=== PATIENT | male | born 1975 | race Caucasian/White ===

== ENCOUNTER 2018-06-14 12:29 | Inpatient (IN) | payer OTHER ==
[2018-06-14 15:55] VITALS: BMI 27.5
--- NOTE | 2018-06-14 17:36 | HP ---
COWS - Scale Resting Pulse: 1= [place] 81-100 Sweatin=Flushed/Facial Moisture Restless Observation: 3= Extraneous Movement Pupil Size: 1= Pupils >than Normal Bone or Joint Aches: 2= Severe Diffuse Aches Runny Nose/ Eye Tearin= Runny Nose/Eyes GI Upset > 30mins: 2= Nausea/Diarrhea Tremor Observation: 2= Slight Tremor Visible Yawning Observation: 1= 1-2x During Session Anxiety or Irritability: 2=Irritable/Anxious Goose Flesh Skin: 3=Piloerection COWS Score: 21 Admission ROS BHS - HPI Chief Complaint: Im here for detox Allergies/Adverse Reactions: Allergies Allergy/AdvReac Type Severity Reaction Status Date / Time No Known Allergies Allergy Verified 06/14/18 17:31 Exam Limitations: No Limitations - Ebola screening Have you traveled outside of the country in the last 21 days: No (N) Have you had contact with anyone from an Ebola affected area: No Have you been sick,other than usual withdrawal symptoms: No Do you have a fever: No - Review of Systems Constitutional: Chills, Loss of Appetite, Changes in sleep EENT: reports: Blurred Vision, Nose Congestion Respiratory: reports: Cough Cardiac: reports: Lightheadedness GI: reports: Poor Fluid Intake, Abdominal cramping : reports: Other (hesitancy) Musculoskeletal: reports: Back Pain, Joint Pain, Muscle Pain Integumentary: reports: No Symptoms Reported Neuro: reports: Headache, Tremors Endocrine: reports: No Symptoms Reported Hematology: reports: No Symptoms Reported Psychiatric: reports: Depressed Patient History - Patient Medical History Hx Anemia: No Hx Asthma: No Hx Chronic Obstructive Pulmonary Disease (COPD): No Hx Cancer: No Hx Cardiac Disorders: No Hx Congestive Heart Failure: No Hx Hypertension: No Hx Hypercholesterolemia: No Hx Pacemaker: No HX Cerebrovascular Accident: No Hx Seizures: No Hx Dementia: No Hx Diabetes: No Hx Gastrointestinal Disorders: No Hx Liver Disease: No Hx Genitourinary Disorders: No Hx Sexually Transmitted Disorders: No Hx Renal Disease (ESRD): No Hx Thyroid Disease: No Hx Human Immunodeficiency Virus (HIV): No Hx Hepatitis C: No Hx Depression: Yes Hx Suicide Attempt: No Hx Bipolar Disorder: No Hx Schizophrenia: No - Patient Surgical History Past Surgical History: Yes Hx Neurologic Surgery: No Hx Cataract Extraction: No Hx Cardiac Surgery: No Hx Lung Surgery: No Hx Breast Surgery: No Hx Breast Biopsy: No Hx Abdominal Surgery: Yes (appendectomy) Hx Appendectomy: No Hx Cholecystectomy: No Hx Genitourinary Surgery: No Hx Section: No Hx Orthopedic Surgery: No Hx Hysterectomy: No Anesthesia Reaction: No - PPD History Previous Implant?: Yes Documented Results: Negative w/o proof Implanted On Prior [facility] Admission?: No PPD to be Administered?: Yes - Smoking Cessation Smoking history: Current every day smoker Have you smoked in the past 12 months: Yes Aproximately how many cigarettes per day: 15 Hx Chewing Tobacco Use: No Initiated information on smoking cessation: Yes 'Breaking Loose' booklet given: 06/14/18 - Substance & Tx. History Hx Alcohol Use: No Hx Substance Use: Yes Substance Use Type: Heroin Hx Substance Use Treatment: Yes - Substances Abused Heroin Frequency: Daily Amount used: 10 bags Age of first use: 32 Date of Last Use: 06/13/18 Cocaine Route: Injection Frequency: Daily Amount used: 2 Age of first use: 13 Date of Last Use: 06/13/18 Family Disease History - Family Disease History Family Disease History: Diabetes: Mother, [place]: Grandparent Admission Physical Exam [facility] - Vital Signs Vital Signs: Vital Signs - 24 hr 06/14/18 15:49 Temperature 97.9 F Pulse Rate 85 Respiratory 19 Rate Blood Pressure 128/75 - Physical General Appearance: Yes: Sweating HEENTM: Yes: Hearing grossly Normal, Normocephalic, Normal Voice, ANDREA Respiratory: Yes: Chest Non-Tender, Lungs Clear, Normal Breath Sounds, Decreased Breath Sounds Neck: Yes: No masses,lesions,Nodules, Supple Breast: Yes: Breast Exam Deferred Cardiology: Yes: Regular Rhythm, Regular Rate, S1, S2 Abdominal: Yes: Normal Bowel Sounds, Non Tender, Soft Genitourinary: Yes: Hesitency Back: Yes: Normal Inspection Musculoskeletal: Yes: Muscle Pain Extremities: Yes: Tremors 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: 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: 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-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 NML intact, Fully Oriented, Alert, Normal Mood/ Affect, Normal Response Integumentary: Yes: Track Lo (on both arms) Lymphatic: Yes: Within Normal Limits - Diagnostic (1) Opioid dependence Current Visit: Yes Status: Acute Qualifiers: Substance use status: uncomplicated Qualified Code(s): F11.20 - Opioid dependence, uncomplicated Cleared for Admission [facility] - Detox or Rehab [facility] Level of Care: Medically Managed Detox Regimen/Protocol: Methadone [facility] Breath Alcohol Content Breath Alcohol Content: 0 Urine Drug Screen - Results Drug Screen Negative: No Urine Drug Screen Results: DEBRA-Cocaine, OPI-Opiates, BZO-Benzodiazepines
[2018-06-14] MEDS ORDERED: LOPERAMIDE HCL 2 MG CAPSULE PO PRN (17:40)
[2018-06-14] MEDS ORDERED: hydrOXYzine PAMOATE 50 MG CAPSULE (FP) PO PRN (17:40)
[2018-06-14] MEDS ORDERED: IBUPROFEN 400 MG TABLET (FP) PO PRN (17:40)
[2018-06-14] MEDS ORDERED: NICOTINE POLACRILEX 2 MG GUM BC PRN (17:40)
[2018-06-14] MEDS ORDERED: MAGNESIUM HYDROX 2400MG/30ML ORAL SUSPENSION 30 ML CUP PO PRN (17:40)
[2018-06-14] MEDS ORDERED: P-EPHED 60MG/TRIPROLIDI 2.5MG TABLET PO PRN (17:40)
[2018-06-14] MEDS ORDERED: MAGNESIUM CITRATE 300 ML BOTTLE PO PRN (17:40)
[2018-06-14] MEDS ORDERED: guaiFENesin/D-METHORPHAN HB 10 ML UNIT-DOSE CUPS PO PRN (17:40)
[2018-06-14] MEDS ORDERED: MENTHOL/PHENOL 1 EACH UD MM PRN (17:40)
[2018-06-14] MEDS ORDERED: ACETAMINOPHEN 325 MG TABLET (FP) PO PRN (17:40)
[2018-06-14] MEDS ORDERED: MAG HYDROX/AL HYDROX/SIMETH 30 ML UNIT-DOSE CUP PO PRN (17:40)
[2018-06-14] MEDS ORDERED: METHADONE HCL 10 MG TABLET (FOR DETOX USE ONLY) PO ONE ×2 (17:40→23:00)
[2018-06-14] MEDS: NICOTINE 14 MG/24 HOURS TOPICAL PATCH TD SCH (20:50)
[2018-06-14] MEDS: diazePAM 5 MG TABLET PO PRN (20:50)
[2018-06-14] MEDS ORDERED: MELATONIN 5 MG TABLETS PO PRN (22:00)
[2018-06-14] MEDS: THIAMINE HCL 100 MG TABLET (FP) PO SCH (22:47)
[2018-06-15 02:33] LABS: URINE APPEARANCE CLEAR; URINE BILIRUBIN NEGATIVE (<2.0 mg/dL); URINE COLOR YELLOW; URINE GLUCOSE (UA) NEGATIVE (NEGATIVE); URINE KETONE 1+ (NEGATIVE); URINE LEUK ESTERASE NEGATIVE (NEGATIVE); URINE NITRITE NEGATIVE (NEGATIVE); URINE PROTEIN NEGATIVE (NEGATIVE); URINE UROBILINOGEN 4.0 E.U/dl mg/dL (0.2-1.0)
[2018-06-15] MEDS ORDERED: METHADONE HCL 10 MG TABLET (FOR DETOX USE ONLY) PO ONE (10:00)
[2018-06-15 10:09] LABS: HEMATOCRIT 42.8 % (35.4-49); HEMOGLOBIN 14.6 GM/dL (11.7-16.9); MCH 29.8 pg (25.7-33.7); MEAN CELL VOLUME 87.4 fl (80-96); PLATELET COUNT 218 K/MM3 (134-434); RBC 4.89 M/mm3 (4.00-5.60); RDW 13.3 % (11.9-15.9); WHITE BLOOD COUNT 6.9 K/mm3 (4.0-10.0)
[2018-06-15 10:24] LABS: CHLORIDE 107 mmol/L (98-107); SODIUM 142 mmol/L (136-145)
[2018-06-15 10:31] LABS: ALBUMIN 3.4 g/dl (3.4-5.0); ALK PHOS 77 U/L (45-117); ANION GAP 6 (8-16); BILIRUBIN,TOTAL 0.4 mg/dL (0.2-1.0); BLOOD UREA NITROGEN 12 mg/dL (7-18); CO2 29 mmol/L (21-32); CREATININE 0.9 mg/dL (0.7-1.3); GLUCOSE,RANDOM 83 mg/dL (74-106); SGOT/AST 42 U/L (15-37); SGPT/ALT 56 U/L (12-78); TOT PROT 6.7 g/dl (6.4-8.2)
[2018-06-15] MEDS: PRENATAL VITAMINS W/ FOLIC ACID TABLET (FP) PO SCH (11:11)
[2018-06-15] MEDS: NICOTINE 14 MG/24 HOURS TOPICAL PATCH TD SCH (11:12)
--- NOTE | 2018-06-15 15:47 | PN ---
S COWS - Scale Resting Pulse: 0= [place] 80 or Below Sweatin= No chills or Flushing Restless Observation: 1= Difficult to Sit Still Pupil Size: 0= Normal to Room Light Bone or Joint Aches: 0= None Runny Nose/ Eye Tearin= None GI Upset > 30mins: 0= None Tremor Observation of Outstretched Hands: 0= None Yawning Observation: 0= None Anxiety or Irritability: 0= None COWS Score: 1 BHS Progress Note (SOAP) Subjective: states he is doing OK Objective: 06/15/18 15:46 Vital Signs - 24 hr 06/14/18 06/14/18 06/15/18 15:49 22:29 00:30 Temperature 97.9 F 97.6 F Pulse Rate 85 67 Respiratory 19 18 18 Rate Blood Pressure 128/75 123/75 06/15/18 06/15/18 06/15/18 03:30 06:28 06:30 Temperature 98.1 F Pulse Rate 58 L Respiratory 18 18 18 Rate Blood Pressure 103/46 06/15/18 06/15/18 09:31 13:35 Temperature 97.5 F L 96.6 F L Pulse Rate 68 79 Respiratory 18 18 Rate Blood Pressure 112/63 111/53 Laboratory Tests 06/15/18 06/15/18 06/15/18 01:00 07:45 07:45 WBC 6.9 RBC 4.89 Hgb 14.6 Hct 42.8 MCV 87.4 MCH 29.8 MCHC 34.0 RDW 13.3 Plt Count 218 MPV 9.0 Sodium 142 Potassium 4.0 Chloride 107 Carbon Dioxide 29 Anion Gap 6 L BUN 12 Creatinine 0.9 Creat Clearance w eGFR > 60 Random Glucose 83 Calcium 9.0 Total Bilirubin 0.4 AST 42 H ALT 56 Alkaline Phosphatase 77 Total Protein 6.7 Albumin 3.4 Urine Color Yellow Urine Appearance Clear Urine pH 8.0 Ur Specific [place] 1.013 Urine Protein Negative Urine Glucose (UA) Negative Urine Ketones 1+ H Urine Blood Negative Urine Nitrite Negative Urine Bilirubin Negative Urine Urobilinogen 4.0 e.u/dl Ur Leukocyte Esterase Negative RPR Titer 06/15/18 07:45 WBC RBC Hgb Hct MCV MCH MCHC RDW Plt Count MPV Sodium Potassium Chloride Carbon Dioxide Anion Gap BUN Creatinine Creat Clearance w eGFR Random Glucose Calcium Total Bilirubin AST ALT Alkaline Phosphatase Total Protein Albumin Urine Color Urine Appearance Urine pH Ur Specific [place] Urine Protein Urine Glucose (UA) Urine Ketones Urine Blood Urine Nitrite Urine Bilirubin Urine Urobilinogen Ur Leukocyte Esterase RPR Titer Nonreactive nl labs nl VS Assessment: 06/15/18 15:46 Here for opioid detox Plan: continue methadone detox protocol
[2018-06-15] MEDS: THIAMINE HCL 100 MG TABLET (FP) PO SCH (22:29)
[2018-06-16 09:46] VITALS: BP 100/51; PULSE 67; TEMP 97.8
[2018-06-16] MEDS ORDERED: METHADONE HCL 5 MG TABLET (FOR DETOX USE ONLY) PO ONE (10:00)
[2018-06-16] MEDS: diazePAM 5 MG TABLET PO PRN (10:35)
[2018-06-16] MEDS: PRENATAL VITAMINS W/ FOLIC ACID TABLET (FP) PO SCH (10:35)
[2018-06-16] MEDS: NICOTINE 14 MG/24 HOURS TOPICAL PATCH TD SCH (10:36)
--- NOTE | 2018-06-16 10:53 | EKG ---
Test Reason : Blood Pressure : / mmHG Vent. Rate : 055 BPM Atrial Rate : 055 BPM P-R Int : 108 ms QRS Dur : 122 ms QT Int : 436 ms P-R-T Axes : 046 063 047 degrees QTc Int : 417 ms SINUS BRADYCARDIA WITH SHORT NM RSR' OR QR PATTERN IN V1 SUGGESTS RIGHT VENTRICULAR CONDUCTION DELAY BORDERLINE ECG NO PREVIOUS ECGS AVAILABLE Confirmed by SHAI SALES MD ([id number]) on 06/16/2018 10:52:41 AM Referred By: Confirmed By:SHAI SALES MD
--- NOTE | 2018-06-16 11:14 | PN ---
S CIWA - CIWA Score Nausea/Vomitin-No Nausea/No Vomiting Muscle Tremors: None Anxiety: 3 Agitation: 2 Paroxysmal Sweats: 3 Orientation: 0-Oriented Tacttile Disturbances: 2-Mild Itch/Numbness/Burn Auditory Disturbances: 0-None Visual Disturbances: 3-Moderate Sensitivity Headache: 0-None Present CIWA-Ar Total Score: 13 S Progress Note (SOAP) Subjective: Sweating, Anxious. Objective: PATIENT A & O X 3. NO ACUTE DISTRESS. 06/16/18 11:11 Vital Signs Temperature 97.8 F 06/16/18 09:45 Pulse Rate 67 06/16/18 09:45 Respiratory Rate 18 06/16/18 09:45 Blood Pressure 100/51 06/16/18 09:45 O2 Sat by Pulse Oximetry (%) Laboratory Tests 06/15/18 06/15/18 06/15/18 01:00 07:45 07:45 WBC 6.9 RBC 4.89 Hgb 14.6 Hct 42.8 MCV 87.4 MCH 29.8 MCHC 34.0 RDW 13.3 Plt Count 218 MPV 9.0 Sodium 142 Potassium 4.0 Chloride 107 Carbon Dioxide 29 Anion Gap 6 L BUN 12 Creatinine 0.9 Creat Clearance w eGFR > 60 Random Glucose 83 Calcium 9.0 Total Bilirubin 0.4 AST 42 H ALT 56 Alkaline Phosphatase 77 Total Protein 6.7 Albumin 3.4 Urine Color Yellow Urine Appearance Clear Urine pH 8.0 Ur Specific [place] 1.013 Urine Protein Negative Urine Glucose (UA) Negative Urine Ketones 1+ H Urine Blood Negative Urine Nitrite Negative Urine Bilirubin Negative Urine Urobilinogen 4.0 e.u/dl Ur Leukocyte Esterase Negative RPR Titer 06/15/18 07:45 WBC RBC Hgb Hct MCV MCH MCHC RDW Plt Count MPV Sodium Potassium Chloride Carbon Dioxide Anion Gap BUN Creatinine Creat Clearance w eGFR Random Glucose Calcium Total Bilirubin AST ALT Alkaline Phosphatase Total Protein Albumin Urine Color Urine Appearance Urine pH Ur Specific [place] Urine Protein Urine Glucose (UA) Urine Ketones Urine Blood Urine Nitrite Urine Bilirubin Urine Urobilinogen Ur Leukocyte Esterase RPR Titer Nonreactive LABS NOTED. Assessment: 06/16/18 11:13 WITHDRAWAL SYMPTOMS. Plan: CONTINUE DETOX. INCREASE DAILY PO FLUID INTAKE. ENCOURAGE AMBULATION.
--- NOTE | 2018-06-16 14:32 | DS ---
[facility] Detox Discharge Summary Admission Date: 06/14/18 Discharge Date: 06/16/18 - History Present History: Opioid Dependence Additional Comments: PATIENT HAS PERSONAL ISSUE TO ATTEND TO AND DOES NOT WISH TO REMAIN TO COMPLETE DETOX REGIMEN. RISKS OF LEAVING DETOX UNIT AGAINST MEDICAL ADVICE AND PRIOR TO COMPLETION OF DETOX REGIMEN EXPLAINED TO PATIENT. PATIENT ADVISED TO GO IMMEDIATELY TO NEAREST ER SHOULD ANY INTOLERABLE DETOX SYMPTOMS DEVELOP AT ANY TIME. PATIENT LEFT DETOX UNIT IN STABLE MEDICAL CONDITION. Pertinent Past History: Depression. - Physical Exam Results Vital Signs: Vital Signs Temperature 97.8 F 06/16/18 09:45 Pulse Rate 67 06/16/18 09:45 Respiratory Rate 18 06/16/18 09:45 Blood Pressure 100/51 06/16/18 09:45 O2 Sat by Pulse Oximetry (%) Pertinent Admission Physical Exam Findings: WITHDRAWAL SYMPTOMS. Laboratory Tests 06/15/18 06/15/18 06/15/18 01:00 07:45 07:45 WBC 6.9 RBC 4.89 Hgb 14.6 Hct 42.8 MCV 87.4 MCH 29.8 MCHC 34.0 RDW 13.3 Plt Count 218 MPV 9.0 Sodium 142 Potassium 4.0 Chloride 107 Carbon Dioxide 29 Anion Gap 6 L BUN 12 Creatinine 0.9 Creat Clearance w eGFR > 60 Random Glucose 83 Calcium 9.0 Total Bilirubin 0.4 AST 42 H ALT 56 Alkaline Phosphatase 77 Total Protein 6.7 Albumin 3.4 Urine Color Yellow Urine Appearance Clear Urine pH 8.0 Ur Specific [place] 1.013 Urine Protein Negative Urine Glucose (UA) Negative Urine Ketones 1+ H Urine Blood Negative Urine Nitrite Negative Urine Bilirubin Negative Urine Urobilinogen 4.0 e.u/dl Ur Leukocyte Esterase Negative RPR Titer 06/15/18 07:45 WBC RBC Hgb Hct MCV MCH MCHC RDW Plt Count MPV Sodium Potassium Chloride Carbon Dioxide Anion Gap BUN Creatinine Creat Clearance w eGFR Random Glucose Calcium Total Bilirubin AST ALT Alkaline Phosphatase Total Protein Albumin Urine Color Urine Appearance Urine pH Ur Specific [place] Urine Protein Urine Glucose (UA) Urine Ketones Urine Blood Urine Nitrite Urine Bilirubin Urine Urobilinogen Ur Leukocyte Esterase RPR Titer Nonreactive LABS NOTED. - Treatment Hospital Course: Detoxed Safely - Medication Discharge Medications: Ambulatory Orders NK [No Known Home Medication] 06/14/18 - Diagnosis (1) Opioid dependence Status: Acute Qualifiers: Substance use status: uncomplicated Qualified Code(s): F11.20 - Opioid dependence, uncomplicated - AMA Did Patient Leave Against Medical Advice: Yes (PT HAS PERSONAL ISSUE AND DOES NOT WISH TO REMAIN TO COMPLETE DETOX REGIMEN)
[2018-06-17] MEDS ORDERED: METHADONE HCL 5 MG TABLET (FOR DETOX USE ONLY) PO ONE (10:00)
[2018-06-18] MEDS ORDERED: METHADONE HCL 10 MG TABLET (FOR DETOX USE ONLY) PO ONE (10:00)
[2018-06-19] MEDS ORDERED: METHADONE HCL 5 MG TABLET (FOR DETOX USE ONLY) PO ONE (06:00)
== END 2018-06-16 13:00 | disposition left against medical advice (07) | DRG 770 ==
LOC: YASAS 12:29 → Y3N 19:59
PROVIDERS: ADMIT Surgery; ATTEND Surgery
PROC: HZ2ZZZZ Detoxification Services for Substance Abuse Treatment (ICD-10-PCS; principal; 2018-06-14)
DX: F11.20 Opioid dependence, uncomplicated (principal)
CPT/HCPCS: 36415; 80053; 81003; 85027; 86593; 93005; 93010